=== PATIENT | female | born 2000 | race Caucasian/White ===

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

== ENCOUNTER 2023-06-03 16:06 | Emergency (ER) | payer MEDICAID ==
[~2023-06-03] VITALS: Ht 157.5 cm; Wt 54.6 kg
[~2023-06-03 16:06] MED LIST: IBUP-1985 PO
[2023-06-03 16:32] VITALS: BP 138/88; PULSE 111; RESP 16; O2SAT 100
[2023-06-03] MEDS ORDERED: HYDR-3965 PO (16:50)
[2023-06-03 17:03] VITALS: TEMP 98.8
== END 2023-06-03 17:06 | disposition home or self-care (01) ==
LOC: ER 16:06
DX: J32.9 Chronic sinusitis, unspecified (principal); J45.909 Unspecified asthma, uncomplicated; F12.90 Cannabis use, unspecified, uncomplicated; Z79.1 Long term (current) use of non-steroidal anti-inflammatories (NSAID)
CPT/HCPCS: 99283

== ENCOUNTER 2023-06-15 18:04 | Emergency (ER) | payer MEDICAID ==
[~2023-06-15] VITALS: Ht 160 cm; Wt 54.0 kg
[~2023-06-15 18:04] MED LIST changes: +HYDR-3965 PO
[2023-06-15 18:05] VITALS: BP 143/96; PULSE 124; TEMP 98; O2SAT 100
[2023-06-15] MEDS: HYDROcodone/acetaminophen 5mg/325mg tablet PO ONE (18:12)
[2023-06-15 18:18] VITALS: RESP 16
[2023-06-15] MEDS: ketorolac trometh. 30mg/ml inj. IM ONE (18:18)
[2023-06-15] MEDS ORDERED: PRED20TA PO (18:49)
[2023-06-15] MEDS ORDERED: AMOX-117 PO (18:49)
[2023-06-15] MEDS ORDERED: HYDR-3965 PO (18:49)
== END 2023-06-15 18:59 | disposition home or self-care (01) ==
LOC: ER 18:05
DX: J01.90 Acute sinusitis, unspecified (principal); J45.909 Unspecified asthma, uncomplicated; F12.90 Cannabis use, unspecified, uncomplicated; Z79.2 Long term (current) use of antibiotics; Z79.1 Long term (current) use of non-steroidal anti-inflammatories (NSAID)
CPT/HCPCS: 96372; 99283; J1885

== ENCOUNTER 2023-07-07 17:26 | Emergency (ER) | payer MEDICAID ==
[~2023-07-07] VITALS: Ht 160 cm; Wt 53.6 kg
[~2023-07-07 17:26] MED LIST changes: +AMOX-117 PO; +PRED20TA PO
[2023-07-07 18:23] LABS: BASOPHILS # (AUTO) 0.1 X10'3 (0-0.2); BASOPHILS % (AUTO) 0.7 % (0-1); EOSINOPHILS # (AUTO) 0.2 X10'3 (0-0.9); EOSINOPHILS % (AUTO) 2.6 % (0-6); HEMATOCRIT 39.2 % (35.0-45.0); HEMOGLOBIN 13.8 g/dl (12.0-16.0); LYMPHOCYTES # (AUTO) 2.8 X10'3 (1.1-4.8); LYMPHOCYTES % (AUTO) 30.9 % (21-51); MEAN CORPUSCULAR HEMOGLOBIN 31.4 PG (27.0-31.0); MEAN CORPUSCULAR VOLUME 89.6 FL (78-98); MEAN PLATELET VOLUME 6.8 FL (7.4-10.4); MONOCYTES # (AUTO) 0.7 X10'3 (0-0.9); MONOCYTES % (AUTO) 7.7 % (2-12); NEUTROPHILS # (AUTO) 5.3 X10'3 (1.8-7.7); NEUTROPHILS % (AUTO) 58.1 % (42-75); PLATELET COUNT 320 X10'3 (140-440); RED BLOOD COUNT 4.38 X10'6 (4.20-5.60); RED CELL DISTRIBUTION WIDTH 13.5 % (11.5-14.5); WHITE BLOOD COUNT 9.2 X10'3 (4.5-11.0)
[2023-07-07 18:40] LABS: ALBUMIN 4.3 G/DL (3.4-5.0); ANION GAP 13 (8-16); BLOOD UREA NITROGEN 7 MG/DL (7-18); BUN/CREATININE RATIO 9.1 (10.0-20.0); CALCIUM 9.8 MG/DL (8.5-10.1); CHLORIDE 104 MMOL/L (99-107); CREATININE 0.77 MG/DL (0.40-0.90); GLUCOSE 98 MG/DL (70-104); SODIUM 141 MMOL/L (135-145); TOTAL CARBON DIOXIDE 24.2 MMOL/L (24-32); eCRCL 95 ML/MIN; eGFR > 90 ML/MIN
[2023-07-07] MEDS: POTASSIUM BICARB 20meq eff tab 20 MEQ TABLET.EFF PO SCH (19:03)
[2023-07-07 19:06] VITALS: BP 122/72; PULSE 85; RESP 14; TEMP 98.4; O2SAT 99
== END 2023-07-07 19:08 | disposition home or self-care (01) ==
LOC: ER 17:26
DX: R00.2 Palpitations (principal); E87.6 Hypokalemia; J45.909 Unspecified asthma, uncomplicated; F12.90 Cannabis use, unspecified, uncomplicated; Z79.2 Long term (current) use of antibiotics; Z79.1 Long term (current) use of non-steroidal anti-inflammatories (NSAID); Z79.899 Other long term (current) drug therapy
CPT/HCPCS: 36415; 80048; 84484; 85025; 93005; 99284

== ENCOUNTER 2024-10-16 19:18 | Inpatient (IN) | payer MEDICAID ==
[~2024-10-16] VITALS: Ht 157.5 cm; Wt 50.5 kg
--- NOTE | 2024-10-16 20:01 | ELECTROCARDIOGRAPH REPORT ---
[facility] Test Date: 2024-10-16 Test Time: 19:59:33 Pat Name: BERKLEY PEÑA Department: [facility]- Patient ID: [facility]-[id number] Room: Gender: F Assembly Machine Operator: : 2000 Requested By: RACHEL DISLA Order Number: [id number] Reading MD: Dr. Rachel Disla Measurements Intervals [place] Rate: 129 P: 74 CT: 159 QRS: -74 QRSD: 89 T: 53 QT: 292 QTc: 428 Interpretive Statements Sinus tachycardia LAD, consider left anterior fascicular block RSR' in V1 or V2, probably normal variant Electronically Signed On 10-16-2024 22:56:[address] Rachel Disla Please click the below link to view image of tracing.
[2024-10-16 20:42] LABS: MEAN PLATELET VOLUME 6.7 FL (7.4-10.4); RED CELL DISTRIBUTION WIDTH 13.0 % (11.5-14.5)
[2024-10-16 21:04] LABS: CREATININE 0.78 MG/DL (0.40-0.90); TOTAL CARBON DIOXIDE 27.7 MMOL/L (24-32); eCRCL 80 ML/MIN; eGFR > 90 ML/MIN
[2024-10-16 21:15] LABS: ETHANOL < 10 MG/DL (<10)
[2024-10-16 22:58] LABS: URINE AMPHETAMINE SCREEN NEGATIVE (Neg); URINE BARBITUATE SCREEN NEGATIVE (Neg); URINE BENZODIAZEPINES SCREEN NEGATIVE (Neg); URINE CANNABINOID SCREEN POSITIVE (Neg); URINE COCAINE SCREEN NEGATIVE (Neg); URINE METHADONE SCREEN NEGATIVE (Neg); URINE OPIATE SCREEN NEGATIVE (Neg); URINE PHENCYCLIDINE SCREEN NEGATIVE (Neg)
--- NOTE | 2024-10-16 23:00 | Physician Documentation ---
History of Present Illness ~ Chief Complaint: Palpitations Stated Complaint: DIZZY Time Seen by MD: 22:38 OK to notify your PCP?: Yes Primary Medical Doctor: NONE Source: patient, RN/MD, RN notes reviewed, old records Mode of Arrival: POV Exam Limitations: no limitations HPI 24 year old female seen in bed 13 presents to the emergency department with family for complaints of palpitations that began two days ago. She states that when she stands up she begins to feel dizzy and states that her vision goes blurry. She states that when she stands up her heart rate becomes elevated and rises with the highest being noted o her apple watch to be in the 180s. Additionally she states that she has been having chest pressure, numbness in her hands, fatigue with excursion. Patient denies any cardiac history. Medication Reconciliation Allergies: Coded Allergies: No Known Allergies (Unverified , 07/07/23) Miscellaneous Medications Home Med List (No Home Medications), (Reported) Discontinued Medications Amox Tr/Potassium Clavulanate (Augmentin 875-125 Tablet), 1 TAB PO Q12H Discontinued Reason: patient no longer taking Hydrocodone Bit/Acetaminophen 5/325 MG ([place] 5/325 MG), 1 TAB PO TID PRN PRN for pain Discontinued Reason: patient no longer taking Ibuprofen (Ibuprofen), 1 TAB PO Q8H Discontinued Reason: patient no longer taking Prednisone* (Prednisone*), 2 TAB PO DAILY Discontinued Reason: patient no longer taking Past Medical History Past Medical History: Asthma, Anxiety Past Surgical History: no surgical history Alcohol Use: None Drug Use: marijuana Lives with: Family Lives In: Home Occupation: student Review of Systems All Other Systems at this time: Reviewed and Negative ROS As stated above in the HPI, otherwise all systems are reviewed and negative. Physical Exam Vital Signs: RN Vital Signs have been reviewed: Yes, Temperature: 98.6, Source: Temporal, Heart Rate: 94, Respiratory Rate: 16, BP: 131/85, Pulse Oximetry: 99, Weight: 45.050 Pulse Oximetry Reflects: adequate oxygenation Physical Exam General: The patient is well developed, well nourished, nontoxic appearing and is in no acute distress. Skin: [place], warm and dry with no rashes. HEENT: Head was normocephalic and atraumatic. Eyes - pupils equal, round, reactive to light and accommodation. Extraocular movements were intact. Conjunctivae were nonicteric. Ears - bilateral tympanic membranes were normal. The mouth and oropharynx were clear with moist mucous membranes. There were no pharyngeal exudates or erythema. Neck: Supple and nontender. There was no jugular venous distention, lymphadenopathy, thyromegaly or masses. Chest: Clear to auscultation bilaterally without wheezes, rales or rhonchi. No accessory muscle use. No dullness to percussion. Heart: Rapid heart rate. S1, S2. No murmurs. Palpation of the chest wall was normal. No rubs or thrills. Abdomen: Soft, nontender and nondistended. Positive bowel sounds. No guarding or rebound. No hepatosplenomegaly or palpable masses. Extremities: No cyanosis, clubbing or edema. The patient moves all extremities. Pulses were equal and symmetric. Neurologic: Cranial nerves II-XII were intact. Sensation was intact to light touch throughout. Motor strength was 5/5 in all four extremities. Deep tendon reflexes were intact in both upper and lower extremities. Psychologic: The patient was oriented to person, place and time. The patient demonstrated appropriate judgement and insight. Progress Progress Note 2327: The case was discussed with the hospitalist who was informed on the patients case and kindly agreed to admission. Results/Orders Results/Orders Orders - CYRUS JAQUEZ MD Electrocardiogram (10/16/24 ) Parathyroid Hormone, Intact (10/16/24 23:10) Page Hospitalist (10/16/24 23:11) Fill Out Med Reconciliation (10/16/24 23:11) Completed Orders - CYRUS JAQUEZ MD Electrocardiogram (10/16/24 ) CMP (10/16/24 20:04) Cbc/Diff (10/16/24 20:04) Troponin (Single) (10/16/24 20:04) Ethanol (10/16/24 20:04) Drug Screen, Urine (10/16/24 20:04) Magnesium Oxide Tablet (Mag-Ox 400mg Tab (10/16/24 23:00) Potassium Cl Sr Tablet (K-Dur Tablet) (10/16/24 22:58) MG (10/16/24 20:34) ESR (10/16/24 23:10) C-Reactive Protein (10/16/24 20:34) TSH (10/16/24 20:34) Medications Received in ER Medications (Trade) Dose Ordered Sig/Jaime Route PRN Reason Start Time Stop Time Status Last Admin Dose Admin (mag-Ox 400mg tablet) 400 mg ONCE ONCE PO 10/16/24 23:00 10/16/24 23:01 DC 10/16/24 23:41 400 MG (K-DUR tablet) 40 meq ONCE STAT PO 10/16/24 22:58 10/16/24 23:00 DC 10/16/24 23:41 40 MEQ Vital Signs 10/16/24 10/16/24 10/16/24 19:53 22:15 22:19 Temp 98.6 Pulse 128 94 Resp 15 16 16 B/P (MAP) 163/88 131/85 (100) Pulse Ox 100 99 Laboratory Tests Test 10/16/24 20:34 10/16/24 22:28 White Blood Count 8.4 Red Blood Count 4.53 Hemoglobin 14.1 Hematocrit 40.2 Mean Corpuscular Volume 88.8 Mean Corpuscular Hemoglobin 31.0 Mean Corpuscular Hemoglobin Concent 35.0 Red Cell Distribution Width 13.0 Platelet Count 422 Mean Platelet Volume 6.7 L Neutrophils (%) (Auto) 51.0 Lymphocytes (%) (Auto) 32.7 Monocytes (%) (Auto) 7.1 Eosinophils (%) (Auto) 8.0 H Basophils (%) (Auto) 1.2 H Neutrophils # (Auto) 4.3 Lymphocytes # (Auto) 2.8 Monocytes # (Auto) 0.6 Eosinophils # (Auto) 0.7 Basophils # (Auto) 0.1 CBC Comment Erythrocyte Sedimentation Rate 13 Sodium Level 135 Potassium Level 3.4 L Chloride Level 101 Carbon Dioxide Level 27.7 Anion Gap 6 L Blood Urea Nitrogen 7 Creatinine 0.78 Estimated GFR/1.73 m2 > 90 BUN/Creatinine Ratio 9.0 L Glucose Level 86 Calcium Level 9.3 Magnesium Level 1.9 Total Bilirubin 0.8 Aspartate Amino Transf (AST/SGOT) 22 Alanine Aminotransferase (ALT/SGPT) 25 Alkaline Phosphatase 85 Troponin I High Sensitivity < 4 L C-Reactive Protein 0.59 H Total Protein 8.4 H Albumin 4.1 Globulin 4.3 Albumin/Globulin Ratio 1.0 L Thyroid Stimulating Hormone (TSH) 3.47 Chemistry Comments Ethyl Alcohol Level < 10 Urine Opiates Screen Negative Urine Methadone Screen Negative Urine Fentanyl Screen Negative Urine Barbiturates Screen Negative Urine Phencyclidine Screen Negative Urine Amphetamines Screen Negative Urine Benzodiazepines Screen Negative Urine Cocaine Screen Negative Urine Cannabinoids Screen Positive Drug Screen Comment Re-Evaluation Re-Evaluation : Re-Evaluation: Improved Additional Comment Patient was seen and examined. Patient is given reassurance. Patient heart rate would vary from 80s to 140s. Patient was having some chest pressure as well which was somewhat concerning. Laboratory work was obtained her potassium was slightly low at 3.4. Patient's LFTs are within normal limits. TSH within normal limits. Patient was given potassium and magnesium supplementation. Patient received fluids. Patient's symptoms improved but was admitted for further workup if care and cardiac rule out. Continuous public stenographer interpretation shows sinus tachycardia heart rate 120s, no ectopy, abnormal, my interpretation. Pulse oximetry monitor interpretation shows normal oxygenation 99% room air, my interpretation. EKG/XRAY/CT/US/VASC/MRI EKG : Additional Comment [facility] Test Date: 2024-10-16 Test Time: 19:59:33 Pat Name: BERKLEY PEÑA Department: [facility]- Patient ID: [facility]-[id number] Room: Gender: F Guest Services Officer: : 2000 Requested By: CYRUS JAQUEZ Order Number: [id number] Reading MD: Dr. Cyrus Jaquez Measurements Intervals [place] Rate: 129 P: 74 MD: 159 QRS: -74 QRSD: 89 T: 53 QT: 292 QTc: 428 Interpretive Statements Sinus tachycardia LAD, consider left anterior fascicular block RSR' in V1 or V2, probably normal variant Electronically Signed On 10-16-2024 22:56:[address] Cyrus Jaquez Please click the below link to view image of tracing. EKG Date and Time:10/16/241958 Electronically Signed by: CYRUS JAQUEZ MD Date and Time: 10/16/24 589 Heart Score: Heart Score Response (Comments) Value History Slightly Suspicious 0 EKG Repolarization Disturb 1 Age <45 0 Risk Factors No known risk factors 0 Troponin Normal limit 0 Total 1 Medical Decision Making Additional info obtained from: old records Differential Dx:Considerations: Include: angina / DE, atrial dysrhythmia, atrial fibrillation, atrial flutter, MAT, PACs, PSVT, sinus tachycardia, WPW, 1st degree AV block, 2nd degree AVB-type 1, 2nd degree AVB-type 2, 3rd degree AV block, PVCs, torsades de pointes, ventricular fibrillation, ventricular tachycardia, other Differential Dx:Considerations: Include anxiety/panic attack, Include digoxin toxicity, Include electrolyte disorder, Include heart failure, Include hyperthyroidism, Include hyperventilation, Include hypoxia, Include pacemaker malfunction, Include pulmonary embolus, Include renal failure, Include other Departure Disposition: ADMITTED INPATIENT Admitted to Inpatient Unit: yes, to hospitalist Admission Level of Care: PCU with Tele Impression: Primary Impression: Tachyarrhythmia Additional Impressions: Palpitations Dizziness Hypokalemia Condition: Stable Referrals: NO PRIMARY CARE PROVIDER (PCP) Education Educated: Patient Educated regarding: diagnosis Signature Scribe Signature: Scribed for Cyrus Jaquez MD by Kathy Arce . 10/16/24 23:22 Attestation: The note accurately reflects work and decisions made by me.Cyrus Jaquez MD 10/16/24 23:00 CYRUS JAQUEZ MD Oct 16, 2024 23:00 KATHY BEAVRE Oct 16, 2024 23:19
[2024-10-16] MEDS: potassium Cl 20 mEq SR tablet PO STA (23:41)
[2024-10-17] VITALS (7 sets, daily range): BP systolic 101–135; BP diastolic 61–89; PULSE 75–95; RESP 14–19; TEMP 97–98; O2SAT 100
[2024-10-17] MEDS ORDERED: potassium Cl 40MEQ/1/2NS 520ml 520 ML IV PRN (00:40)
[2024-10-17] MEDS ORDERED: magnesium sulf-water 4G/100mL 100 ML IV PRN (00:40)
[2024-10-17] MEDS ORDERED: potassium Cl 20 mEq SR tablet PO PRN ×2 (00:40)
[2024-10-17] MEDS ORDERED: magnesium hydroxide 30ml (MOM) UD suspension PO PRN (00:40)
[2024-10-17] MEDS ORDERED: mag hydrox/Alum hydrox/simeth 30ml oral suspension PO PRN (00:40)
[2024-10-17] MEDS ORDERED: magnesium sulf-water 2g/50mL 50 ML IV PRN (00:40)
[2024-10-17] MEDS ORDERED: docusate sod 100mg capsule PO PRN (00:40)
[2024-10-17] MEDS ORDERED: ondansetron/PF 4mg/2ml inj IV PRN (00:40)
[2024-10-17] MEDS ORDERED: magnesium Cl slow-release 64mg tablet PO PRN (00:40)
[2024-10-17] MEDS: normal saline 1000ml 1,000 ML IV SCH (01:01)
--- NOTE | 2024-10-17 01:02 | HISTORY AND PHYSICAL-Residence ---
History & Physical Providers to CC Resident Creating Document: SINAN PARKER RES ~ History of Present Illness Primary Medical Doctor: NONE Reason for Admit\Complaint: Sinus tachycardia w/ dizziness History of Present Illness A 24 years old female presented with the acute on chronic episodes of palpitations, sweating, flushing and redness of face, chest discomfort on standing past two days with PMH of asthma, anxiety, sinus infections, and substance use history (Nicotine and EtOH, marijuana). Pt was accompanied by her grandma at the bedside. Pt stated that she noticed the flushing and witnessed redness of the face before she felt the palpitations on standing what was recorded on her apple watch that went up to around 140s as max. It was assocaited with the dropping down of BP to 90/60 chrissy from the her usual 120/70 mmHg. She endorsed that episodes were associated with sweating, dizziness and lightheadness, some crampy stomach, but denies any asthmatic attack, diarrhea episodes, N&V, pounding headaches, syncope, and itching skin etc. she reported with chest discomfort during palpitations which lasted for some minutes but did not radiate to anywhere else. She had similar events since last year summer and went to the [facility] to figure out but only diagnosed with anxiety. She did not recall any Dehydration and profound perspiration, menorrhagia and metrorrhagia before every episodes. Her first day of LMP was 10/01/24 and no chance of getting . She never been evaluated by cardiology before with the monitors. She denied fever with chills and rigors, nausea and vomiting abdominal pain, abnormal bowel and bladder movements, and new FND. Allergies: Coded Allergies: No Known Allergies (Unverified , 07/07/23) Home Medications Home Medications Active [place] 5/325 MG (Acetaminophen/Hydrocodone Bitart) 5 Mg/325 Mg Tablet 1 Tab PO TID PRN PRN 5 Days Prednisone* (Prednisone) 20 Mg Tablet 2 Tab PO DAILY Augmentin 875-125 Tablet (Amoxicillin/Clavulanate Potassium) 1 Each Tablet 1 Tab PO Q12H 14 Days Ibuprofen 600 Mg Tablet 1 Tab PO Q8H 10 Days Past Medical History Past Medical History - asthma -anxiety -sinus infections -substance use history (Nicotine, marijuana, and EtOH) Past Surgical History Surgical History Comment No relevant significant past surgical history Past Social History Social History Comment She is living with the family, accompanied by her grandma She is currently vaping with nicotine Sober drinking alcohol for a year Denies using any illicit drugs including cocaine amphetamine etc. Alcohol Use: None Drug Use: Marijuana Lives with: Family Lives In: Home Occupation: student ROS All Other Systems: Reviewed and Negative ROS ROS were reviewed WNL except for the above-mentioned in HPI Exam Vitals: Vital Signs Date Time Temp Pulse Resp B/P (MAP) Pulse Ox O2 Delivery O2 Flow Rate FiO2 10/16/24 22:19 94 16 131/85 (100) 99 10/16/24 19:53 98.6 General: General: Well alert, well oriented, not confused, not agitated, not in acute distress, well cooperated during the physical. Sad mood and frustrating for what she is having with no apparent reason. HEENT: HEENT: Conjunctive are pink, sclerae clear, no icterus, pupil is equal in both sides, reactive to light, no ear discharge, no pharyngeal erythema or an edema, mouth and lips are dry. Neck: Neck: Supple, no JVD, no lymphadenopathy and thyromegaly. 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 deficits, no motor and sensory weakness in all 4 extremities, could move all 4 extremities Musculoskeletal: Musculoskeletal: No joint swelling, deformities, inflammations, and no scoliosis and back tenderness Skin: Skin: No active skin lesions and rashes Diagnostic Data Last Recorded Lab Results: 10/16/24203310/16/242033 Counseling Services Smoking & Tobacco Cessation: > 10 Minutes Advance Care Planning Advanced Care plannin - 30 Minutes Additional Plan A 24 years old female presented with the acute on chronic episodes of palpitations, sweating, flushing and redness of face and chest discomfort on standing past two days with PMH of asthma, anxiety, sinus infections, and substance use history (Nicotine and EtOH, marijuana). # Symtomatic sinus tachycardia -to rule out possible etiologies of Orthostat hypotension Vs SVT Vs systemic Mastocytosis Vs Serotonin Syndrome Vs Pheochromocytoma -vitals were stable on the monitor -no anemia -no electrolyte imbalances except for mild hypokalemia -WNL RBS -mildly elevated CRP with normal ESR -normal TSH, pending PTH -positive marijuana and negative drug screen, <10 Ethyl alcohol -pending Cortisol level in the early am in the presence of mild hypokalemia -WNL LFTs -Plan: continue IV NS 0.9% 100ml/hr, orthostatic hypotension test pending, if positive plan for IV Fluid boluses and compression stocking and abd binder; if negative : ( plan to check for 5HIAA in urine) if pt suspected for the serotonin syndrome from carcinoid tumor : plan for fraction metanephrine, and urine catecholamine : plan for serum tryptase for possible Systemic mastocytosis : otherwise, monitor outpatient with LFTs and vitals or endocrinology referral # mild hypokalemia -replace as accordingly # Anxiety -reassure the pt with the plans and pending labs and tests -p.o. Protonix 40 mg q.day # Substance use Hx (Nicotine, EtOH and marijuna) -educated and linked between risks and usage including CVD CVA malignancy risks -explained the possible S/E of nicotine patch for nicotine patch as needed prescription -strongly encouraged to quit vaping nicotine and marijuna use CODE STATUS: Full code DVT prophylaxis: Sc heparin 5000 units b.i.d. Analgesia/sedation: Tylenol as needed Lines/tubes: PIV GI prophylaxis: P.o. Protonix Nutrition: Regular Prognosis: Guarded Disposition: Continue medical management, continuous telemetry monitoring, pending orthostatic hypotension tests, pending labs to be follow up, PT eval and DC plan. Resident MD attestation: Patient was seen, examined and discussed with attending MD, Dr. Belen PARKER MD Internal Medicine Resident, PGY3 [facility] saw and evaluate the patient I discussed the case with Dr Parker I agree with plan of care as documented Date of Service: Oct 17, 2024 Billing Provider: ALEX PARRA MD, TIN, RES Oct 17, 2024 01:02 ALEX PARRA MD Oct 17, 2024 03:54
[2024-10-17] MEDS ORDERED: normal saline 500ml IV soln 500 ML IV ONE (01:05)
[2024-10-17] MEDS ORDERED: NO HOME MEDS (01:13)
[2024-10-17] MEDS: pantoprazole 40mg Tablet.DR PO SCH (07:52)
[2024-10-17] MEDS: heparin, porcine 5000 units/ml vial SQ SCH (07:54)
[2024-10-17] MEDS: K and/or MAG REPLACEMENT MC SCH (08:00)
[2024-10-17] MEDS ORDERED: haloperidol lactate 5mg/ml inj IM PRN (09:15)
[2024-10-17 09:22] LABS: MEAN PLATELET VOLUME 7.2 FL (7.4-10.4); RED CELL DISTRIBUTION WIDTH 13.3 % (11.5-14.5)
[2024-10-17 09:35] LABS: CREATININE 0.70 MG/DL (0.40-0.90); TOTAL CARBON DIOXIDE 26.6 MMOL/L (24-32); eCRCL 99 ML/MIN; eGFR > 90 ML/MIN
[2024-10-17] MEDS ORDERED: diazepam inj 5 MG/ML inj. IV PRN (09:45)
[2024-10-17] MEDS: thiamine 100mg/ml 2ml inj. IV SCH (13:00)
--- NOTE | 2024-10-17 18:34 | PROGRESS NOTE- Residence ---
Progress Note - Resident Providers to CC Resident Creating Document: ALESHIA GUERRIER RES ~ Antibiotic Timeout Antibiotic Ordered?: No Subjective Seen and examined the patient at bedside she is improving and on the better side without any AFib/SVTs. She denied palpitations, shortness of breath, chest pain. Objective Vital Signs Date Time Temp Pulse Resp B/P (MAP) Pulse Ox O2 Delivery O2 Flow Rate FiO2 10/17/24 15:40 97.4 76 16 103/71 (82) 100 10/17/24 10:57 Room Air 10/17/24 08:10 0.0 Result Diagram: 10/17/24 0857 10/17/24 0857 General: Alert, awake, oriented to time place person. Not in acute distress HEENT: Conjunctive are pink, sclerae clear, no icterus, pupil is equal in both sides, reactive to light, no ear discharge, no pharyngeal erythema or an edema, mouth and lips are dry. Neck: Neck: Supple, no JVD, no lymphadenopathy and thyromegaly. Respiratory system: Equal air entry on both lungs, no additional sounds Cardiovascular: S1-S2 regular sinus rhythm and, sinus tachycardia, no gallops, no rubs, no murmurs Gastrointestinal system: No visible peristalsis, Bowel sounds present on auscultation, soft, nontender, no guarding, no rigidity Extremities: No obvious deformities, no pitting edema bilaterally, capillary refill intact, able to wiggle toes both sides, peripheral pulsations are intact on both sides Central Nervous System: No focal neurological deficits. Musculoskeletal: No joint swelling, deformities, inflammations, and no scoliosis and back tenderness Skin: No active skin lesions and rashes Advance Care Planning Advanced Care plannin - 30 Minutes Plan Plan Symtomatic sinus tachycardia likely 2/2 below SVT versus paroxysmal AFib versus cannabis use disorder versus anxiety Heart rate , in sinus rhythm and blood pressure is stable Ruled out anemia, hyperthyroidism, CBC and CMP is unremarkable including magnesium. positive marijuana and negative drug screen, <10 Ethyl alcohol Continue telemetry monitoring over the night Polysubstance use disorder Marijuana use Nicotine use Alcohol use On detox protocol with folic acid, thiamine Hypokalemia, resolved On replacement protocol CODE STATUS: Full code DVT prophylaxis: Sc heparin 5000 units b.i.d. Lines/tubes: PIV GI prophylaxis: P.o. Protonix Nutrition: Regular Prognosis: Guarded Disposition: Follow up with primary care with the event monitor Aleshia Guerrier IM resident, PGY 2 Date of Service: Oct 17, 2024 Billing Provider: POLINA ARREOLA MD,ALESHIA, RES Oct 17, 2024 18:33
--- NOTE | 2024-10-17 19:45 | DISCHARGE SUMMARY-Residence ---
Discharge Summary Providers to CC Resident Creating Document: ALESHIA GUERRIER ANGELITA ~ Discharge Summary Admission Diagnosis: SINUS TACHYCARDIA Hospital Course DATE OF ADMISSION: 10/16/24 DATE OF against medical advice: 10/17/2024 Discharge Diagnosis\Comment: Sinus tachycardia AFib, can not be ruled out Hypokalemia Polysubstance use disorder Cannabis use disorder Nicotine use disorder Alcohol use Operations\Procedures: None Consultants: None Complications: None Condition on DC: Unstable Discharge Summary: HPI time of admission per admitting physician A 24 years old female presented with the acute on chronic episodes of palpitations, sweating, flushing and redness of face, chest discomfort on standing past two days with PMH of asthma, anxiety, sinus infections, and substance use history (Nicotine and EtOH, marijuana). Pt was accompanied by her grandma at the bedside. Pt stated that she noticed the flushing and witnessed redness of the face before she felt the palpitations on standing what was recorded on her apple watch that went up to around 140s as max. It was assocaited with the dropping down of BP to 90/60 chrissy from the her usual 120/70 mmHg. She endorsed that episodes were associated with sweating, dizziness and lightheadness, some crampy stomach, but denies any asthmatic attack, diarrhea episodes, N&V, pounding headaches, syncope, and itching skin etc. she reported with chest discomfort during palpitations which lasted for some minutes but did not radiate to anywhere else. She had similar events since last year summer and went to the [facility] to figure out but only diagnosed with anxiety. She did not recall any Dehydration and profound perspiration, menorrhagia and metrorrhagia before every episodes. Her first day of LMP was 10/01/24 and no chance of getting . She never been evaluated by cardiology before with the monitors. She denied fever with chills and rigors, nausea and vomiting abdominal pain, abnormal bowel and bladder movements, and new FND. Course in the hospital We admitted the patient in view of symptomatic sinus tachycardia with orthostatic hypotension with a polysubstance use disorder marijuana, nicotine, alcohol. We are evaluating the cause for sinus tachycardia and we considered differential diagnosis paroxysmal AFib, SVT, postural orthostatic tachycardia syndrome (POTS), cannabis use disorder, anxiety. We ruled out anemia, hyperthyroidism, magnesium related heart arrhythmia. CBC and CMP is unremarkable on 10/17/2024 and drug screen is positive for marijuana and ethyl alcohol is less than 10. She was on detox protocol the folic acid, thiamine. She was on potassium replacement protocol for hypokalemia and heparin for DVT prophylaxis and Protonix for GI prophylaxis. We are monitoring telemetry over the night but patient does not want to stay in the hospital and she wants to leave against medical advice even after discussing with her about the positive potential consequences of being going against the medical advice including the . She clearly understands the risks and she wants to leave AMA. *Problems/Diagnosis: (1) Polysubstance use disorder (2) Sinus tachycardia (3) Cannabis use disorder (4) Nicotine use disorder (5) Alcohol use (6) Orthostatic hypotension (7) Hypokalemia Total Time Spent on D/C: > 30 Minutes Date of Service: Oct 17, 2024 Billing Provider: POLINA ARREOLA MD, [email or web address], RES Oct 17, 2024 19:43
[2024-10-18] MEDS ORDERED: multivitamins, therapeutics tablet PO SCH (08:00)
[2024-10-18] MEDS ORDERED: folic acid 1mg/0.2ml inj IV SCH (08:00)
== END 2024-10-17 19:23 | disposition left against medical advice (07) | DRG 201 ==
LOC: ER 19:18 → ED HOLD 23:36 → EDBEDREQ 10-17 02:52 → PCU 3S 10-17 03:20
PROVIDERS: ADMIT Internal Medicine; ATTEND Family Medicine
DX: I48.0 Paroxysmal atrial fibrillation (principal); E87.6 Hypokalemia; R00.0 Tachycardia, unspecified; F10.90 Alcohol use, unspecified, uncomplicated; F41.9 Anxiety disorder, unspecified; J45.909 Unspecified asthma, uncomplicated; I95.1 Orthostatic hypotension; Y90.0 Blood alcohol level of less than 20 mg/100 ml; F19.90 Other psychoactive substance use, unspecified, uncomplicated; F12.90 Cannabis use, unspecified, uncomplicated; Z79.899 Other long term (current) drug therapy
CPT/HCPCS: 36415; 80053; 80305; 80320; 83036; 83735; 83970; 84132; 84443; 84484; 85025; 85651; 86140; 87081; 93005; 99285; G0378; J1644; J7030